=== PATIENT | male | born 1970 | race Caucasian/White ===

== ENCOUNTER → 2017-10-23 | Day surgery (SDC) | payer BC ==
[2017-10-21 15:59] VITALS: BMI 31.1
[~2017-10-23] MED LIST: DEXAMETHASONE SOD PHOS (MDV) 100 MG/10 ML VIAL ONE; DEXAMETHASONE SOD PHOSPHATE 10 MG/ML 1 ML VIAL IV ONE; GLYCOPYRROLATE 0.2 MG/ML 2 ML VIAL ONE; HYDROmorphone 0.5 MG/0.5 ML SYRINGE IVP PRN; IOHEXOL 300 MG/ML 50 ML BOTTLE MISCELLANE ONE; LACTATED RINGERS 1,000 ML IV ONE; LACTATED RINGERS 1,000 ML IV SCH; LIDOCAINE 1% 20 ML VIAL (10MG/ML) FOR IV START INTRADERMA PRN; LIDOCAINE 1% INJ 10MG/ML (20 ML MDV) ONE; MIDAZOLAM 2 MG/2 ML VIAL IV PRN; MIDAZOLAM 2 MG/2 ML VIAL ONE; MORPHINE SULFATE 2 MG/ML SYRINGE IV PRN; NEOSTIGMINE 1 MG/ML 10 ML VIAL ONE; ONDANSETRON 4 MG/2 ML VIAL IVP ONE; PHENYLEPHRINE-0.9% NACL SYG 1 MG/10 ML SYRINGE ONE; PROPOFOL 10 MG/ML 20 ML VIAL IV ONE; ROCURONIUM BROMIDE 10 MG/ML 10 ML VIAL IV ONE; SCOPOLAMINE 1.5MG/72HR PATCH TRANSDERM ONE; SUCCINYLCHOLINE CHLORIDE VIAL 200 MG/10 ML VIAL IV ONE; ceFAZolin IN SWFI 2 GM/20 ML SYRINGE IVP ONE; fentaNYL (PF) 50 MCG/ML 2 ML AMP IV PRN; fentaNYL (PF) 50 MCG/ML 2 ML AMP ONE
--- NOTE | 2017-10-23 13:46 | XR ---
EXAMINATION TYPE: XR KUB DATE OF EXAM: 10/23/2017 CLINICAL DATA: 47-year-old male kidney stones, presurgery, [facility] COMPARISON: None FINDINGS: Supine imaging limited for assessment of free intraperitoneal air. Cholecystectomy clips. Prominent air-filled loop of small bowel in the left mid abdomen likely transi ent. Overall nonobstructive bowel gas pattern. No significant stool burden. Nonspecific calcifications in the right greater than left pelvis measure up to 3 mm and have a rounde d appearance suggesting phlebolith. IMPRESSION: No definite suspicious calcification is radiographically apparent. Rounded calcifications measuring u p to 3 mm in the pelvis are suggestive of phleboliths.
[2017-10-23 18:38] VITALS: TEMP 97.2
--- NOTE | 2017-10-23 18:43 | P.OP ---
Date of Procedure: 10/23/17 Preoperative Diagnosis: Right ureteral calculus Postoperative Diagnosis: Same Procedure(s) Performed: Cystoscopy, right ureteroscopy with Holmium laser lithotripsy, right ureteral stent insertion Anesthesia: ALEENAA Surgeon: Jono Adamson Estimated Blood Loss (ml): 5 IV fluids (ml): 800 Pathology: none sent Condition: stable Disposition: PACU Indications for Procedure: 47 yo WM presents with right renal colic due to a 3-4 mm right distal ureteral calculus. He has experienced intractable symptoms and has thus elected to undergo ureteroscopic removal of the calculus. Operative Findings: Right distal ureteral calculus impacted at ureterovesical junction, fragmented to completion. Description of Procedure: The patient was taken to the operating room and placed in the dorsolithotomy position, with legs supported in Ayush stirrups. The external genitalia was prepped and draped sterilely. The 30 lens was used to introduce the 19-Argentine Stortz cystoscopic sheath through the urethra and into the bladder under direct vision. The prostatic urethra showed evidence of mild lateral lobe enlargement. The bladder was examined in its entirety. The left ureteral orifice was of normal anatomic location and configuration, and clear urine effluxed from it. Significant edema surrounding the right ureteral orifice. No tumors or foreign bodies were seen. The [facility] semirigid ureteroscope was advanced into the bladder, and the right ureteral orifice was cannulated with some difficulty. The caliber of the ureter was diminished, and it was not possible to advance the ureteroscope. Therefore, a 0.035 inch Glidewire was passed through the ureteroscope. The Glidewire was advanced into the lumen of the ureter and up to the right renal pelvis. The ureteroscope was removed, and the Glidewire was backloaded into the cystoscope, which was passed into the bladder. A 15-Argentine, 4 cm balloon dilating catheter was then used to dilate the intramural portion of the ureter. The balloon dilating catheter was removed along with the cystoscope, and ureteroscopy was repeated. The right ureteral orifice was cannulated, and the ureteroscope was advanced up to the calculus. The 200 micron Holmium laser probe was passed through the ureteroscope, and lithotripsy was performed. The calculus fragmented well, and lithotripsy was continued until there were no residual calculus fragments exceeding 1-2 mm. There was no evidence of ureteral perforation. The Glidewire was passed through the ureteroscope, which was then removed, and the Glidewire was backloaded into the cystoscope. The cystoscope was advanced into the bladder, and a 28 cm, 4.8-Argentine double-J ureteral stent was placed over the wire. Proper stent positioning was verified fluoroscopically and endoscopically. The bladder was emptied and the cystoscope removed. The patient tolerated the procedure well and was taken to the recovery room in stable condition.
[2017-10-23 19:11] VITALS: RESP 16
[2017-10-23 19:33] VITALS: BP 170/90; PULSE 78
--- NOTE | 2017-10-24 08:09 | FL ---
EXAMINATION TYPE: FL guidance operating room DATE OF EXAM: 10/23/2017 CLINICAL HISTORY: Right ureter stone. TECHNIQUE: Fluoroscopy. COMPARISON: Abdominal x-ray earlier today FINDINGS: Fluoroscopic guidance was provided during right ureter stent insertion procedure performed by Dr. Adamson. A total of 6 seconds of fluoroscopic time was utilized during the procedure and one spot intraoperative image is acquired. Single image acquired shows partial visualization of right ure ter stent. IMPRESSION: As Above.
== END | disposition home or self-care (01) ==
LOC: OR 13:20
PROVIDERS: ATTEND Urology
DX: N20.1 Calculus of ureter (principal); Z87.442 Personal history of urinary calculi; E05.90 Thyrotoxicosis, unspecified without thyrotoxic crisis or storm; Z79.2 Long term (current) use of antibiotics; Z79.1 Long term (current) use of non-steroidal anti-inflammatories (NSAID); Z79.891 Long term (current) use of opiate analgesic; Z79.899 Other long term (current) drug therapy; Z72.0 Tobacco use
CPT/HCPCS: 52356; 74018; C2625; C1769; J2250; J0330; J1100 ×2; J2710; J2405; J2001; J3010; J2370; J2704; Q9967; 93005